=== PATIENT | male | born 1950 | race Caucasian/White ===

== ENCOUNTER → 2022-08-10 | Outpatient (CLI) | payer MEDICARE | END | disposition home or self-care (01) | LOC: RAH 08:37 | PROVIDERS: ATTEND Family Medicine | DX: E11.42 Type 2 diabetes mellitus with diabetic polyneuropathy (principal) | CPT/HCPCS: 93922 ==

== ENCOUNTER 2024-01-12 16:00 | Observation (INO) | payer MEDICARE ==
[~2024-01-12] VITALS: Ht 177.8 cm; Wt 117.3 kg
[2024-01-13 12:15] LABS: BASOPHILS # (AUTO) 0.04 K/uL (0.00-0.20); BASOPHILS % (AUTO) 0.5 % (0.0-5.0); EOSINOPHILS # (AUTO) 0.49 K/uL (0.00-0.70); HEMATOCRIT 43.7 % (42-54); IMMATURE GRANULOCYTE ABSOLUTE 0.02 K/uL (0-1); LYMPHOCYTES # (AUTO) 2.6 K/uL (1.0-4.8); LYMPHOCYTES % (AUTO) 31.5 % (21.0-51.0); MEAN CORPUSCULAR HEMOGLOBIN 29.8 pg (27.0-33.0); MEAN CORPUSCULAR VOLUME 90.5 fL (79-99); MONOCYTES # (AUTO) 0.8 K/uL (0.1-1.0); MONOCYTES % (AUTO) 9.3 % (3.0-13.0); NEUTROPHILS # (AUTO) 4.3 K/uL (1.8-7.7); NEUTROPHILS % (AUTO) 52.5 % (40.0-77.0); PLATELET COUNT (AUTO) 266 K/uL (130-400); RED BLOOD CELL COUNT(AUTO) 4.83 MIL/uL (4.50-6.20); RED CELL DISTRIBUTION WIDTH 13.9 % (11.0-15.5); WHITE BLOOD COUNT (AUTO) 8.1 K/uL (4.8-10.8)
[2024-01-13 12:20] LABS: APPEARANCE,URINE CLEAR (CLEAR); BILIRUBIN,URINE NEGATIVE (NEGATIVE); COLOR,URINE LIGHT-YELLOW (YELLOW); GLUCOSE, URINE (UA) >=1000 mg/dL (NEGATIVE); KETONES,URINE NEGATIVE (NEGATIVE); LEUKOCYTE ESTERASE ,URINE NEGATIVE Leu/uL (NEGATIVE); NITRATE,URINE NEGATIVE (NEGATIVE); OCCULT BLOOD,URINE NEGATIVE (NEGATIVE); PH,URINE 5.5 (5.0-8.0); PROTEIN,URINE NEGATIVE (NEGATIVE); UROBILINOGEN,URINE 0.2 mg/dL (0.2-1.0)
[2024-01-13 12:23] LABS: ADD UA MICROSCOPIC YES
[2024-01-13 12:25] LABS: MUCUS,URINE RARE LPF (None Seen); WBC,URINE 0-1 /HPF (0-1)
[2024-01-13 12:29] LABS: PROTHROMBIN TIME 10.8 SEC (9.6-11.6)
[2024-01-13 12:30] LABS: PARTIAL THROMBOPLASTIN TIME 25.8 SEC (26.3-35.5)
[2024-01-13 12:32] VITALS: BP 161/81; PULSE 89; RESP 19
[2024-01-13 12:35] LABS: POTASSIUM 4.6 mmol/L (3.5-5.1)
[2024-01-13] MEDS ORDERED: VITAMIN D3 PO (12:41)
[2024-01-13] MEDS ORDERED: ATOR20TA65 PO (12:41)
[2024-01-13] MEDS ORDERED: COQ10 PO (12:41)
[2024-01-13] MEDS ORDERED: LISI5TAB21 PO (12:41)
[2024-01-13] MEDS ORDERED: NPH,100I SQ ×2 (12:41)
[2024-01-13] MEDS ORDERED: AEC81 PO (12:41)
[2024-01-13 12:49] LABS: CREATININE 1.1 mg/dL (0.5-1.3)
[2024-01-17] VITALS (24 sets, daily range): BP systolic 98–139; BP diastolic 56–79; PULSE 80–100; RESP 13–19
[2024-01-17] MEDS: CEFAZOLIN SODIUM 2 GM VIAL ONE (08:17)
[2024-01-17] MEDS: 0.9%NACL 1000ML 1,000 ML IV ONE (08:18)
[2024-01-17] MEDS ORDERED: SUCCINYLCHOLINE CHLORIDE 20 MG/ML 10 ML VIAL ONE (09:00)
[2024-01-17] MEDS ORDERED: LIDOCAINE PF 100MG/5ML (2%) SYRINGE 5ML ONE (09:00)
[2024-01-17] MEDS ORDERED: DEXAMETHASONE SOD PHOSPHATE 10MG/ML 1ML VIAL ONE (09:01)
[2024-01-17] MEDS ORDERED: PROPOFOL 10 MG/ML 20ML VIAL IV ONE (09:01)
[2024-01-17] MEDS ORDERED: MIDAZOLAM HCL 1 MG/ML 2ML VIAL ONE (09:01)
[2024-01-17] MEDS ORDERED: GLYCOPYRROLATE 0.2 MG/ML 5 ML VIAL ONE (09:01)
[2024-01-17] MEDS ORDERED: NEOSTIGMINE METHYLSULFATE 1MG/ML IV ONE (09:02)
[2024-01-17] MEDS ORDERED: FENTANYL CITRATE PF 50 MCG/1 ML 2ML VIAL ONE ×2 (09:02→10:15)
[2024-01-17] MEDS ORDERED: ONDANSETRON 4MG INJ ONE (09:02)
[2024-01-17] MEDS ORDERED: ROCURONIUM BROMIDE 10MG/1ML 5ML VL ONE (09:02)
[2024-01-17] MEDS: CEFAZOLIN SODIUM 1 GM VIAL ONE (10:20)
[2024-01-17] MEDS: VANCOMYCIN 1G/250ML KIT 250 ML IV ONE (10:20)
[2024-01-17] MEDS: MORPHINE PF 100MG/10ML AMP IV ONE (10:20)
[2024-01-17] MEDS: TRANEXAMIC ACID 1000MG/10ML ONE ×2 (10:21→12:31)
[2024-01-17] MEDS ORDERED: POTASSIUM CHLORIDE 10% ELIXIR 20 MEQ/15 ML UDCUP PO PRN (11:30)
[2024-01-17] MEDS ORDERED: KETOROLAC 15MG/ML VIAL (15MG/ML) IV PRN (11:30)
[2024-01-17] MEDS ORDERED: CALCIUM CARB 500MG PO PRN (11:30)
[2024-01-17] MEDS ORDERED: ONDANSETRON 4MG INJ IVP PRN (11:30)
[2024-01-17] MEDS ORDERED: FERROUS FUMARATE 324 MG TABLET PO PRN (11:30)
[2024-01-17] MEDS ORDERED: DiphenhydrAMINE HCL 50 MG/ML VIAL IVP PRN (11:30)
[2024-01-17] MEDS ORDERED: KCL 20 MEQ ERTAB PO PRN (11:30)
[2024-01-17] MEDS ORDERED: POTASSIUM CHLORIDE 20MEQ/100ML 100 ML IV PRN (11:30)
[2024-01-17] MEDS ORDERED: MEPERIDINE-PF 25 MG/ML SYG ONE (11:38)
[2024-01-17] MEDS: OXYCODONE HCL 5 MG TAB ONE (15:59)
[2024-01-17] MEDS: CEFAZOLIN SODIUM 2 GM VIAL IVPB SCH (20:00)
[2024-01-17] MEDS: INSULIN HUMULIN R 100 UNIT/ML 3ML SQ SCH (21:13)
[2024-01-17] MEDS: FAMOTIDINE 20MG TAB PO SCH (21:14)
[2024-01-17] MEDS: ASPIRIN 81 MG EC TAB PO SCH (21:14)
[2024-01-17] MEDS: 0.9%NACL 1000ML 1,000 ML IV SCH (21:14)
[2024-01-17] MEDS: CELECOXIB 200 MG CAP PO SCH (21:14)
[2024-01-17] MEDS: ACETAMINOPHEN 500 MG TABLET PO SCH (21:18)
[2024-01-17] MEDS: TRAMADOL HCL 50 MG TABLET PO PRN (23:19)
[2024-01-18] VITALS: BP 127/64; PULSE 90; RESP 17
[2024-01-18] MEDS: OXYCODONE HCL 5 MG TAB PO PRN ×2 (02:48→08:17)
[2024-01-18 04:00] VITALS: BP 137/68; PULSE 89; RESP 17
[2024-01-18 04:43] LABS: HEMATOCRIT 36.6 % (42-54); MEAN CORPUSCULAR HEMOGLOBIN 29.4 pg (27.0-33.0); MEAN CORPUSCULAR HGB CONC 33.1 g/dL (32.0-36.0); MEAN CORPUSCULAR VOLUME 89.1 fL (79-99); RED BLOOD CELL COUNT(AUTO) 4.11 MIL/uL (4.50-6.20); RED CELL DISTRIBUTION WIDTH 14.3 % (11.0-15.5); WHITE BLOOD COUNT (AUTO) 11.8 K/uL (4.8-10.8)
[2024-01-18 04:59] LABS: CREATININE 1.1 mg/dL (0.5-1.3); POTASSIUM 4.1 mmol/L (3.5-5.1)
[2024-01-18] MEDS: CEFAZOLIN SODIUM 2 GM VIAL IVPB SCH (05:54)
[2024-01-18 08:00] VITALS: O2SAT 92
[2024-01-18] MEDS: TAMSULOSIN HCL 0.4 MG CAP.ER.24H PO SCH (08:17)
[2024-01-18] MEDS: POLYETHYLENE GLYCOL 3350 17 GM POWD.PACK PO SCH (08:17)
[2024-01-18 08:20] VITALS: BP 117/70; PULSE 80; RESP 19
[2024-01-18 12:26] VITALS: BP 126/70; PULSE 81; RESP 18
[2024-01-18] MEDS ORDERED: HYDR-4060 PO (16:19)
[2024-01-18] MEDS ORDERED: AEC81 PO (16:19)
[2024-01-18 17:24] VITALS: BP 125/61; PULSE 75; RESP 17
[2024-01-20] MEDS ORDERED: BISACODYL 10 MG SUPP.RECT RC PRN (11:30)
== END 2024-01-18 17:30 | disposition home or self-care (01) ==
LOC: DAHIP 01-17 06:19 → 4AH 01-17 16:55
PROVIDERS: ADMIT Orthopaedic Surgery; ATTEND Orthopaedic Surgery
DX: M17.11 Unilateral primary osteoarthritis, right knee (principal); I10 Essential (primary) hypertension; E66.9 Obesity, unspecified; E11.9 Type 2 diabetes mellitus without complications; E78.00 Pure hypercholesterolemia, unspecified; Z79.899 Other long term (current) drug therapy
CPT/HCPCS: 80048 ×2; 85025; 85610; 85730; 87086; 81001; 36415 ×2; 87641; 64447; 27447; 82948 ×6; 88311; 88305; 97161; 97116 ×3; 97530 ×6; 96374; 85027; J1815 ×2; G0378 ×21; G0379; A4663; J7120; J3010 ×2; J0690 ×4; J3490 ×4; J1100; J0330; J7030; J2001; J2250; J2704; J2274; J2405; J2710; J3370; J2175; A9272; A4649 ×3; A4930 ×2; C1763; C1776; A5120; A4215; A4223; A4222; A4221

== ENCOUNTER 2024-02-10 12:38 | Emergency (ER) | payer MEDICARE ==
[~2024-02-10] VITALS: Ht 180.3 cm; Wt 111.1 kg
[~2024-02-10 12:38] MED LIST: AEC81 PO; ATOR20TA65 PO; COQ10 PO; HYDR-4060 PO; LISI5TAB21 PO; NPH,100I SQ; VITAMIN D3 PO
[2024-02-10 13:54] LABS: BASOPHILS # (AUTO) 0.02 K/uL (0.00-0.20); BASOPHILS % (AUTO) 0.3 % (0.0-5.0); EOSINOPHILS # (AUTO) 0.32 K/uL (0.00-0.70); EOSINOPHILS % (AUTO) 4.5 % (0.0-8.0); HEMATOCRIT 37.6 % (42-54); IMMATURE GRANULOCYTE ABSOLUTE 0.02 K/uL (0-1); LYMPHOCYTES # (AUTO) 2.6 K/uL (1.0-4.8); LYMPHOCYTES % (AUTO) 36.8 % (21.0-51.0); MEAN CORPUSCULAR HEMOGLOBIN 29.1 pg (27.0-33.0); MEAN CORPUSCULAR HGB CONC 33.2 g/dL (32.0-36.0); MEAN CORPUSCULAR VOLUME 87.6 fL (79-99); MONOCYTES # (AUTO) 0.8 K/uL (0.1-1.0); MONOCYTES % (AUTO) 11.1 % (3.0-13.0); NEUTROPHILS # (AUTO) 3.3 K/uL (1.8-7.7); PLATELET COUNT (AUTO) 360 K/uL (130-400); RED BLOOD CELL COUNT(AUTO) 4.29 MIL/uL (4.50-6.20); WHITE BLOOD COUNT (AUTO) 7.1 K/uL (4.8-10.8)
[2024-02-10 14:08] LABS: INR 1.04 (0.85-1.15); PROTHROMBIN TIME 11.2 SEC (9.6-11.6)
[2024-02-10 14:32] LABS: PARTIAL THROMBOPLASTIN TIME 24.9 SEC (26.3-35.5)
[2024-02-10 14:52] VITALS: BP 116/62; PULSE 90; RESP 18; O2SAT 95
== END 2024-02-10 15:05 | disposition home or self-care (01) ==
LOC: EDH 12:38
DX: G89.18 Other acute postprocedural pain (principal); M79.661 Pain in right lower leg; Z79.82 Long term (current) use of aspirin; Z79.899 Other long term (current) drug therapy; Z96.651 Presence of right artificial knee joint
CPT/HCPCS: 36415; 80048; 85025; 85610; 85730; 93971